=== PATIENT | male | born 1975 | race Caucasian/White ===

== ENCOUNTER 2023-12-24 11:27 | Emergency (ER) | payer BC, SELFPAY ==
[2023-12-24 11:36] VITALS: BP 133/83; PULSE 72; RESP 16; TEMP 36.3; O2SAT 98; BMI 26.2
--- NOTE | 2023-12-24 11:45 | ED.GENADULT ---
HPI - General Adult General Time Seen by Provider: 11:45 Date Seen: 12/24/23 Chief complaint: Extremity Pain/Injury, Lower Stated complaint: Poss blood clot in right leg Time Seen by Provider: 12/24/23 11:29 Source: patient, family and RN notes reviewed Mode of arrival: ambulatory (With crutches) Limitations: no limitations History of Present Illness HPI narrative: This 48-year-old male is coming into the ER with concern of possible blood clot in his leg. He was playing soccer about 2 weeks ago injuring his right knee, has had an MRI. He did tear the ACL in his right knee, some meniscal injury and something injured on the medial right knee but not the medial collateral ligament. About a week and half ago he started experiencing right calf pain in the calf pain is increasing. There is a red streak in the back of the calf. He has had no chest pain no shortness of breath. The ankle pain has been increasing and it has went from the upper calf down to the ankle. He feels the leg is swollen. He has never had a blood clot before but is concerned this could be a blood clot. He initially had significant knee swelling but that has gone down. Related Data Previous Rx's ?Medication ?Instructions ?Recorded apixaban 5 mg tablet (Eliquis) 5 mg PO BID #60 tabs 12/24/23 Allergies Allergy/AdvReac Type Severity Reaction Status Date / Time No Known Drug Allergies Allergy Verified 12/24/23 11:36 Review of Systems Narrative: As per HPI. PFSH PFS Social History Smoking Status: Never smoker Do you use any of these nicotine containing products: None How often do you have a drink containing alcohol: 2-4 times a month AUDIT-C Alcohol total score: 2 Non-prescribed substance use: denies use Exam Const: Vital Signs, click to edit/add: Vital Signs - 24 hr 12/24/23 11:36 12/24/23 14:19 Temperature 97.3 F L 97.6 F Pulse Rate [Pulse Oximeter] 72 56 L Respiratory Rate 16 18 Blood Pressure [Ri ght Upper Arm] 133/83 121/71 Pulse Oximetry 98 98 Oxygen Delivery Me thod Room Air This 48-year-old male is alert, interactive, no apparent distress. He is seen in exam room 2. Speech normal, able to speak in complete sentences. Lungs are clear, no wheezing or crackles, no tachypnea. CV regular rate and rhythm, no murmur, normal S1/S2. Lower extremities visualized. He does not have any right knee joint effusion any longer fossa masses. I do not appreciate any pretibial pitting edema on either side. He has a good right radial and dorsalis pedis pulse. Normal light touch sensation. Calf in the substance of the muscle has a central mildly erythematous lying down the middle of the gastrocnemius muscle, non blanchable, no cord palpated. Do think this might be some dependent vascular changes. Documenting provider has reviewed patient's vital signs: yes Course Course ED Course: Have discussed with them using a screening D-dimer but given his recent trauma, fear that this would be positive anyways. They understand that I cannot rule out a DVT clinically. Will proceed with obtaining ultrasound of his right lower extremity to make sure there is no DVT. We did discuss the dependent process of resolution of swelling and traumatic change. The blood certainly can be inflammatory and this could be giving him calf pain. Nonetheless, will rule out veinous clotting with the ultrasound as I cannot tell them with out doing this test. Reevaluation(s) Time of Reevaluation #1: 14:17 Reevaluation #1: Have reviewed ultrasound report with patient. Had just taken a phone call from the radiologist. Does have blood clot in the peroneal vein, my direct conversation with the radiologist is that it is probably within 1-2 cm of the proximal branching, this does make him high risk. I have discussed up-to-date guidelines with below the knee DVTs of observation with serial ultrasound verses treatment with anticoagulants. We went over Coumadin verses NOACs. Coumadin would require bridging with Lovenox shots. He would prefer Eliquis as we have discussed. We have went over risks of bleeding with Eliquis. Vital Signs Vital signs: Initial Vital Signs Temperature 97.3 F L 12/24/23 11:36 Temperature Source Temporal Artery Scan 12/24/23 11:36 Pulse Rate 72 12/24/23 11:36 Respiratory Rate 16 12/24/23 11:36 Blood Pressure 133/83 12/24/23 11:36 Blood Pressure Mean 99 12/24/23 11:36 Pulse Oximetry 98 12/24/23 11:36 Oxygen Delivery Method Room Air 12/24/23 11:36 Vital Signs Temperature 97.3 F L 12/24/23 11:36 Pulse Rate 72 12/24/23 11:36 Respiratory Rate 16 12/24/23 11:36 Blood Pressure 133/83 12/24/23 11:36 Pulse Oximetry 98 12/24/23 11:36 Oxygen Delivery Method Room Air 12/24/23 11:36 Temperature 97.6 F 12/24/23 14:19 Pulse Rate 56 L 12/24/23 14:19 Respiratory Rate 18 12/24/23 14:19 Blood Pressure 121/71 12/24/23 14:19 Pulse Oximetry 98 12/24/23 14:19 Oxygen Delivery Method Room Air 12/24/23 11:36 Medical Decision Making Imaging Data Venous US: Attestation: I have reviewed the pertinent imaging results. Radiologist's impression: Patient: JORGE A INTERIANO Facility:?[facility] Patient ID:?[id number] Site Patient ID:?[id number]. Site :?[id number] Study:?US-Extremity Right Leg Venous-12/24/2023 1:01:42 PM Ordering Physician:?Ese Clark Final Report: INDICATION: Pain and swelling of the right calf. Reported soccer injury approximately 2 weeks ago. ACL tear. General decreased mobility recently. COMPARISON: None. TECHNIQUE: A compression venous ultrasound exam was performed of the right lower extremity using west scale imaging, color Doppler and spectral Doppler analysis. FINDINGS: Sonographic imaging of the right lower extremity demonstrates normal compressibility and color Doppler venous blood flow within the common femoral vein, deep femoral vein, and the proximal greater saphenous vein. Within the thigh, the femoral vein is patent and compressible. At a lower level, the popliteal and posterior tibial veins also show normal compressibility and color Doppler venous blood flow. There is however acute thrombus involving nearly the entire peroneal vein extending to close to the popliteal vein. Limited imaging of the contralateral groin demonstrates a normal spectral waveform and color Doppler venous blood flow within the left common femoral vein. These findings were called to and discussed with Dr. Amber Mulligan at 1:55 p.m. on December 24, 2023. IMPRESSION: Acute thrombus within the right peroneal vein. Dictated by Bashir Ruby MD @ 12/24/2023 2:03:45 PM (Electronic Signature) Critical Care Time Critical Care Time Critical Care Time: No Discharge Plan Discharge Clinical Impression: Acute deep vein thrombosis (DVT) of peroneal vein Qualifiers: Laterality: right Qualified Code(s): I82.451 - Acute embolism and thrombosis of right peroneal vein Patient Disposition: Home, Self-Care Condition: Stable Instructions: Deep Vein Thrombosis (ED) Additional Instructions: Continue with Eliquis 10 mg twice a day, do recommend taking another dose this evening to complete 7 days loading of Eliquis. After this, he will go on 5 mg twice daily. Please take the ultrasound report with you to your orthopedic consultation. Do recommend also contacting your primary care provider with the new finding of the DVT in your right calf. They may opt to send you to a specialist in this area to help navigate probable upcoming surgery for your knee injury. Prescriptions: New Eliquis 5 mg tablet 5 mg PO BID Qty: 60 0RF Rx Instructions: Need to take 10mg BID for 13 more doses (first dose given in ED); then 5mg BID after that Follow Up/Referrals: Donnie Finch MD [Primary Care Provider] - Stand Alone Forms: [employer] Info Instructions
--- NOTE | 2023-12-24 11:46 | CRLHL7_ITS ---
For Patients: As a result of the Century Cures Act, medical imaging exams and procedure reports are released immediately into your electronic medical record. You may view this report before your referring provider. If you have questions, please contact your health care provider. INDICATION: Pain and swelling of the right calf. Reported soccer injury approximately 2 weeks ago. ACL tear. General decreased mobility recently. COMPARISON: None. TECHNIQUE: A compression venous ultrasound exam was performed of the right lower extremity using west scale imaging, color Doppler and spectral Doppler analysis. FINDINGS: Sonographic imaging of the right lower extremity demonstrates normal compressibility and color Doppler venous blood flow within the common femoral vein, deep femoral vein, and the proximal greater saphenous vein. Within the thigh, the femoral vein is patent and compressible. At a lower level, the popliteal and posterior tibial veins also show normal compressibility and color Doppler venous blood flow. There is however acute thrombus involving nearly the entire peroneal vein extending to close to the popliteal vein. Limited imaging of the contralateral groin demonstrates a normal spectral waveform and color Doppler venous blood flow within the left common femoral vein. These findings were called to and discussed with Dr. Amber Mulligan at 1:55 p.m. on December 24, 2023. IMPRESSION: Acute thrombus within the right peroneal vein. Dictated by Bashir Ruby MD @ 12/24/2023 2:03:45 PM (Electronically Signed)
--- OUTSIDE RECORDS SUMMARY | 2023-12-24 12:22 | XMS_ITS | Clinical Summary ---
Author Organization [facility] Address [place], [place] [address] Care Team Providers Care Petrophysicist Name Role Phone Donnie Finch MD Primary Care Provider [phone] Allergies No known active allergies Medications No known medications Active Problems No known active problems Encounters Date Type Department Care Team Description 12/24/2023 1:20 PM CDT Emergency [facility] - [address] [place] [address] 12/24/2023 Telephone [facility] [address] [facility] [address] [place] [address] Juana Fleming NP Visit 12/24/2023 Nurse Triage [facility] [address] [place] [address] Donnie Finch MD Leg Pain/problem 12/21/2023 Telephone [facility] [address] [place] [address] Donnie Finch MD Imaging (MRI knee) 12/20/2023 2:45 PM CDT Ancillary Procedure [facility] [address] [facility] [address] [place] [address] 12/20/2023 Travel 12/15/2023 10:10 AM CDT Ancillary Procedure [facility] [address] [place] [address] 12/15/2023 9:40 AM CDT Office Visit [facility] [address] [place] [address] Donnie Finch MD Knee Injury (right knee x4days) 12/14/2023 Travel from Last 3 Months Family History Medical History Relation Name Comments Other Father Malaria Heart Disease Mother Stroke Mother Multiple sclerosis Sister 1 Relation Name Status Comments Brother 1 Alive Brother 2 Alive Brother 3 Alive Brother 4 Alive Brother 5 Alive Brother 6 Alive Father Mother Sister 1 Alive Sister 2 Alive Sister 3 Alive Sister 4 Alive Sister 5 Alive Sister 6 Alive Sister 7 Alive Social History Tobacco Use Types Packs/Day Years Used Date Smoking Tobacco: Never Smokeless Tobacco: Never Tobacco Cessation:Counseling Given: Not Answered Alcohol Use Standard Drinks/Week Comments Yes 0 (1 standard drink = 0.6 oz pur e alcohol) Social Connections Answer Date Recorded Frequency of Communication with Friends and Fami ly 0 12/14/2023 Financial Resource Strain Answer Date R ecorded Difficulty of Paying Living Expenses 3 12/14/2023 Difficulty of Paying Living Expenses Not on file 12/14/2023 Food Insecurity Answer Date Recorded Do you worry your food will run out before you are able to buy more? 1 12/14/2023 Transportation Needs Answer Date Record ed Lack of Transportation (Medical) 1 12/14/2023 Housing Stability Answer Date Recorded What is your housing situation today? 1 12/14/2023 Sex and Gender Information Value Date Recorded Sex Assigned at Not on file Gender Identity Not on file Sexual Orientation Not on file Obstetrics History Last Filed Vital Signs Vital Sign Reading Time Taken Comments Blood Pressure 114/72 12/15/2023 9:49 AM CDT Pulse 68 12/15/2023 9:49 AM CDT Temperature - - Respiratory Rate - - Oxygen Saturation 97% 12/15/2023 9:49 AM CDT Inhaled Oxygen Concentration - - Weight 78.1 kg (172 lb 3.2 oz) 12/15/2023 9:49 A M CDT Height 173 cm (5' 8.11) 07/03/2023 10:29 AM CDT Body Mass Index 26.1 07/03/2023 10:29 AM CDT Plan of Treatment Upcoming Encounters Date Type Department Care Team (Late st Contact Info) Description 12/26/2023 9:00 AM CDT Office Visit [facility] [address] [place] [address] Yaa Russell PA [address] [place] [address] Health Maintenance Due Date Last Done Comments Tdap 1988 Depression screening for age 12+ 1989 Tetanus booster 1997 Colonoscopy through age 75 2022 COVID-19 vaccine series ( season) 2023 Influenza for age 9-49 10/29/2023 BMI (ht and wt on same day) for age 18+ 07/02/2024 07/03/2023 Lipids for age 45-75 07/02/2028 07/03/2023 HIV for age 15-65 Completed 07/03/2023 Hepatitis C screening for ag e 18-79 Completed 07/03/2023 Pneumococcal series for age 6-64 Aged Out No longer eligible based on patient's age to complete this topic Procedures Procedure Name Priority Date/Time Associated Diagnosis Comments MR KNEE RIGHT WO MARY 12/20/2023 3:18 PM CDT Injury of right knee, initial encounter XR KNEE 3 VIEWS RIGHT Routine 12/15/2023 10:19 AM CDT Injury of right knee, initial encounter ANTI HIV 1/2 Routine 07/03/2023 11:02 AM CDT Encounter for screening for HIV ANTI HCV Routine 07/03/2023 11:02 AM CDT Need for hepatitis C screening test LIPID PANEL W REFLEX MEASURED LDL Routine 07/03/2023 11:02 AM CDT Lipid screening from Last 3 Months or Most Recently Relevant to Health Maintenance Results * MR KNEE RIGHT WO (12/20/2023 3:18 PM CDT) Anatomical Region Laterality Modality KNEE R Magnetic Resonan ce 12/20/2023 3:31 PM CDT Impressions 12/20/2023 3:31 PM CDT 1. Acute ACL tear. 2. Contusion in the lateral tibia posteriorly in a pattern consistent with ACL insufficiency. 3. Acute full-thickness chondral defect in the medial femoral condyle with displaced chondral fragment in the suprapatellar recess medially. 4. Small acute chondral defect posteriorly in the lateral tibia. 5. Large knee joint effusion. Dictated by Naga Carrillo MD @ 12/20/2023 3:31:07 PM (Electronically Signed) Narrative 12/20/2023 3:31 PM CDT For Patients: ??As a result of the Cures Act, medical imaging exams and procedure reports are released immediately into your electronic medical record. ??You may view this report before your referring provider. ??If you have questions, please contact your health care provider. EXAM: MRI OF THE RIGHT KNEE, WITHOUT CONTRAST CLINICAL INDICATION: Pain and swelling following injury over 1 week prior. COMPARISON PLAIN FILMS: 12/15/2023. COMPARISON CROSS-SECTIONAL IMAGING STUDIES: None available at time of interpretation. TECHNICAL: Axial, sagittal and coronal T1, PD, PD FS and T2 FS images. Knee coil. FINDINGS: MEDIAL COMPARTMENT: Medial Meniscus: Normal size and morphology without tear. Articular Cartilage: Acute full-thickness chondral defect sharp shouldered margins in the central aspect of the medial femoral condyle measures 0.9 x 1.4 cm in size. - LATERAL COMPARTMENT: Lateral Meniscus: Normal size and morphology without tear. Articular Cartilage: Acute 0.5 cm full-thickness chondral defect in the far posterior aspect of the tibia with sharp shouldered margins. - PATELLOFEMORAL COMPARTMENT: Articular Cartilage: Mild chondral fissuring in the patella (grade 2). - CRUCIATE LIGAMENTS: Anterior Cruciate Ligament: Acute full-thickness tear of the proximal ACL. Posterior Cruciate Ligament: Normal. - MEDIAL COLLATERAL LIGAMENT AND POSTEROMEDIAL CORNER COMPLEX: Medial Collateral Ligament: Normal. Medial Head of the Gastrocnemius and Semimembranosus Tendons: Normal. - LATERAL COLLATERAL LIGAMENT COMPLEX AND POSTEROLATERAL CORNER COMPLEX: Fibular Collateral Ligament: Normal. Distal Biceps Femoris Tendon Complex: Normal. Iliotibial Band: Normal. Popliteus Tendon: Normal. Posterolateral Corner Capsule: Normal. - EXTENSOR MECHANISM: Distal Quadriceps Tendon: Normal. Patellar Tendon: Normal. Medial Patellar Retinaculum and Medial Patellofemoral Ligament: Normal. Lateral Patellar Retinaculum: Normal. Normal patellar alignment. ??No patella jeimy. ??Normal trochlear depth. ??Normal lateral trochlear inclination. - JOINT SPACE: Effusion: Large complex knee joint effusion. No popliteal cyst. Joint Bodies: The chondral fragment from the medial femoral condyle is displaced into the medial aspect of the suprapatellar recess. - OSSEOUS STRUCTURES: Small to moderate size contusion in the posterior aspect of the lateral tibia and a pattern consistent with ACL insufficiency. No fractures. - PERIARTICULAR SOFT TISSUES: Periarticular Cysts or Ganglia: None. Bursae: No prepatellar, superficial infrapatellar, deep infrapatellar, pes anserinus or semimembranosus/MCL bursitis. Musculature: No muscle atrophy or muscle edema. Subcutaneous and Soft Tissues: No subcutaneous or soft tissue mass, edema or fluid collection. Neurovascular Structures: Normal. Procedure Note Naga Carrillo MD - 12/20/2023 For Patients: As a result of the Cures Act, medical imagingexams and procedure reports are released immediately into your electronicmedical record. You may view this report before your referring provider.If you have questions, please contact your health care provider. EXAM: MRI OF THE RIGHT KNEE, WITHOUT CONTRAST CLINICAL INDICATION: Pain and swelling following injury over 1 week prior. COMPARISON PLAIN FILMS: 12/15/2023. COMPARISON CROSS-SECTIONAL IMAGING STUDIES: None available at time of interpretation. TECHNICAL: Axial, sagittal and coronal T1, PD, PD FS and T2 FS images. Knee coil. FINDINGS: MEDIAL COMPARTMENT: Medial Meniscus: Normal size and morphology without tear. Articular Cartilage: Acute full-thickness chondral defect sharp shoulderedmargins in the central aspect of the medial femoral condyle measures 0.9 x1.4 cm in size. - LATERAL COMPARTMENT: Lateral Meniscus: Normal size and morphology without tear. Articular Cartilage: Acute 0.5 cm full-thickness chondral defect in thefar posterior aspect of the tibia with sharp shouldered margins. - PATELLOFEMORAL COMPARTMENT: Articular Cartilage: Mild chondral fissuring in the patella (grade 2). - CRUCIATE LIGAMENTS: Anterior Cruciate Ligament: Acute full-thickness tear of the proximalACL. Posterior Cruciate Ligament: Normal. - MEDIAL COLLATERAL LIGAMENT AND POSTEROMEDIAL CORNER COMPLEX: Medial Collateral Ligament: Normal. Medial Head of the Gastrocnemius and Semimembranosus Tendons: Normal. - LATERAL COLLATERAL LIGAMENT COMPLEX AND POSTEROLATERAL CORNER COMPLEX: Fibular Collateral Ligament: Normal. Distal Biceps Femoris Tendon Complex: Normal. Iliotibial Band: Normal. Popliteus Tendon: Normal. Posterolateral Corner Capsule: Normal. - EXTENSOR MECHANISM: Distal Quadriceps Tendon: Normal. Patellar Tendon: Normal. Medial Patellar Retinaculum and Medial Patellofemoral Ligament: Normal. Lateral Patellar Retinaculum: Normal. Normal patellar alignment. No patella jeimy. Normal trochlear depth.Normal lateral trochlear inclination. - JOINT SPACE: Effusion: Large complex knee joint effusion. No popliteal cyst. Joint Bodies: The chondral fragment from the medial femoral condyle isdisplaced into the medial aspect of the suprapatellar recess. - OSSEOUS STRUCTURES: Small to moderate size contusion in the posterior aspect of the lateraltibia and a pattern consistent with ACL insufficiency. No fractures. - PERIARTICULAR SOFT TISSUES: Periarticular Cysts or Ganglia: None. Bursae: No prepatellar, superficial infrapatellar, deep infrapatellar, pesanserinus or semimembranosus/MCL bursitis. Musculature: No muscle atrophy or muscle edema. Subcutaneous and Soft Tissues: No subcutaneous or soft tissue mass, edemaor fluid collection. Neurovascular Structures: Normal. IMPRESSION: 1. Acute ACL tear. 2. Contusion in the lateral tibia posteriorly in a pattern consistent withACL insufficiency. 3. Acute full-thickness chondral defect in the medial femoral condyle withdisplaced chondral fragment in the suprapatellar recess medially. 4. Small acute chondral defect posteriorly in the lateral tibia. 5. Large knee joint effusion. Dictated by Naga Carrillo MD @ 12/20/2023 3:31:07 PM (Electronically Signed) Donnie Finch MD MR * XR KNEE 3 VIEWS RIGHT (12/15/2023 10:19 AM CDT) Anatomical Region Laterality Modality KNEES, KNEE R Computed Radiogr aphy 12/17/2023 6:39 AM CDT Impressions 12/17/2023 6:39 AM CDT 1. ??No acute fracture. 2. ??No joint space narrowing. Dictated by Jim Gaona MD @ 12/17/2023 6:39:14 AM (Electronically Signed) Narrative 12/17/2023 6:39 AM CDT For Patients: ??As a result of the Cures Act, medical imaging exams and procedure reports are released immediately into your electronic medical record. ??You may view this report before your referring provider. ??If you have questions, please contact your health care provider. HISTORY: Injury of right knee. TECHNIQUE: Three views of the right knee. COMPARISON: No prior. FINDINGS: There is no acute fracture or malalignment. Spurring at the quadriceps attachment to superior pole of patella. No joint space narrowing. No radiopaque foreign body or soft tissue gas. Procedure Note Jim Gaona MD - 12/17/2023 For Patients: As a result of the Cures Act, medical imagingexams and procedure reports are released immediately into your electronicmedical record. You may view this report before your referring provider.If you have questions, please contact your health care provider. HISTORY: Injury of right knee. TECHNIQUE: Three views of the right knee. COMPARISON: No prior. FINDINGS: There is no acute fracture or malalignment. Spurring at the quadricepsattachment to superior pole of patella. No joint space narrowing. Noradiopaque foreign body or soft tissue gas. IMPRESSION: 1. No acute fracture. 2. No joint space narrowing. Dictated by Jim Gaona MD @ 12/17/2023 6:39:14 AM (Electronically Signed) Donnie Finch MD GENERAL IMAGING * (ABNORMAL) LIPID PANEL W REFLEX MEASURED LDL (07/03/2023 11:02 AM CDT) Pathologist [facility] CHOLESTEROL,TOTAL 246(H) 100 - 199 mg/dL 07/03/2023 6:47 PM CDT [facility] Comment: Cholesterol, Total Reference Ranges Desirable <200 mg/dL Borderline 200-239 mg/dL High >=240 mg/dL TRIGLYCERIDES 155(H) <150 mg/dL 07/03/2023 6:47 PM CDT [facility] HDL CHOLESTEROL 42 >40 mg/dL 6:47 PM CDT [facility] NON-HDL CHOLESTEROL 204(H) <145 mg/dl 07/03/2023 6:47 PM CDT [facility] CHOL/HDL RATIO 5.86(H) <4.50 07/03/2023 6:47 PM CDT [facility] LDL CHOLESTEROL 173(H) <=130 mg/dL 07/03/2023 6:47 PM CDT [facility] VLDL CHOLESTEROL 31(H) <=30 mg/dL 07/03/2023 6:47 PM CDT [facility] PROVIDER ORDERED STATUS FASTING 07/03/2023 6:47 PM CDT [facility] Blood BLOOD SPECIMEN / Unknown Venipuncture / Unknown 07/03/2023 11:02 AM CDT 07/03/2023 11:02 AM CDT Donnie Finch MD CHEMISTRY Performing Organization Address [facility] Co de Phone Number [facility] [address] [place] [address], [place] * ANTI HCV (07/03/2023 11:02 AM CDT) Pathologist [facility] HEPATITIS C ANTIBODY Non-Reacti ve Non-React bonifacio 07/03/2023 6:04 PM CDT [facility] Comment:Please note, per www .CDC.gov: If a patient is known to be at high risk of HCV infection, or is symptomatic, and the physician's suspicion of HCV infection is high, HCV RNA testing is often employed and is of diagnostic value, even after an initial negative anti-HCV test result. Blood BLOOD SPECIMEN / Unknown Venipuncture / Unknown 07/03/2023 11:02 AM CDT 07/03/2023 11:02 AM CDT Donnie Finch MD SEND OUTS Performing Organization Address [facility]/ZIP Co de Phone Number [facility] [address] [place] [address], [place] * ANTI HIV 1/2 (07/03/2023 11:02 AM CDT) HIV-1/HIV-2 SCREEN Non-Reacti ve Non-Reacti ve 07/03/2023 6:35 PM CDT [facility] Comment:HIV-1 p24 and HIV-1/ HIV-2 Ab Not Detected. Blood BLOOD SPECIMEN / Unknown Venipuncture / Unknown 07/03/2023 11:02 AM CDT 07/03/2023 11:02 AM CDT Donnie Finch MD SEND OUTS [facility] [address] [place] [address], from Last 3 Months or Most Recently Relevant to Health Maintenance Care Teams Petrophysicist Relationship Specialty [place] [address] [place] [address] PCP - General Family Practice 07/03/23
[2023-12-24 14:19] VITALS: BP 121/71; PULSE 56; RESP 18; TEMP 36.4; O2SAT 98
[2023-12-24] MEDS: APIXABAN 5 MG TABLET 10 MG PO (14:37)
== END 2023-12-24 14:39 | disposition home or self-care (01) ==
PROVIDERS: Emergency Provider Family Medicine; PCP Family Medicine
DX: I82.451 Acute embolism and thrombosis of right peroneal vein (principal)
CPT/HCPCS: 93971; 99283; A9270